=== PATIENT | male | born 1970 | race Caucasian/White ===

== ENCOUNTER → 2016-11-08 | Outpatient (REF) ==
[~2016-11-08] MED LIST: CELEXA10 MG PO; LORTAB 5/500 501 TAB PO; MULTI VITAMINS1 TAB PO; NORCO 325 MG-51 TAB PO; NORCO 325 MG-7.1 TAB PO; PRILOSEC10 MG PO; VICODIN 5/300 PO; VITAMINC1000TA PO; VOLTAREN SR25 MG/TAB PO
== END ==
LOC: WSOH 11:02
DX: Z01.89 Encounter for other specified special examinations (principal)

== ENCOUNTER 2018-09-27 11:01 | Day surgery (SDC) | payer OTHER ==
[~2018-09-27] VITALS: Ht 180.3 cm; Wt 93.0 kg
[2018-09-27 11:44] VITALS: BP 145/98; PULSE 71; TEMP 98
[2018-09-27] MEDS ORDERED: LIPITOR20 MG PO (11:52)
[2018-09-27] MEDS ORDERED: VITAMIN B1 50 MG PO (11:52)
[2018-09-27] MEDS ORDERED: VITAMIN D3400 I1 PO (11:53)
[2018-09-27] MEDS ORDERED: VITAMIN B12 781 TAB PO (11:53)
[2018-09-27] MEDS ORDERED: NATURE'S BLEND600 M2 PO (11:54)
[2018-09-27 15:40] VITALS: BP 112/79; PULSE 65; TEMP 98
--- NOTE | 2018-09-27 15:40 | NUR ---
Patient brought back to [facility]. Alert and oriented. Vital signs stable. Sipping on water, tolerating well. Denies any pain or nausea. Requesting crackers and sprite. Mother Ros brought back to patients room. Call oakley within reach, will continue to monitor.
[2018-09-27 15:55] VITALS: BP 120/82; PULSE 64
--- NOTE | 2018-09-27 15:55 | NUR ---
Patient states he is feeling well tolerating food and drink. Vital signs WNL. 3 incisions to abdomen, intact. Will continue to monitor.
[2018-09-27 16:10] VITALS: BP 122/76; PULSE 62
--- NOTE | 2018-09-27 16:10 | NUR ---
Patient states he is feeling well and ready to go home. Vital signs stable. Tolerated food and drink well. Denies any pain or nausea. Ambulated to bathroom, spontaneous void achieved.
--- NOTE | 2018-09-27 16:30 | NUR ---
Patients discharge instructions reviewed with patient and mother. Verbalized understanding. Reviewed pain medication instructions. All questions answered. IV removed per orders. Follow up appoinment card reviewed. Patient to get dressed at this time.
--- NOTE | 2018-09-27 16:47 | NUR ---
Patient brought down to lobby via wheelchair. Mother to drive patient home. Safe in personal vehicle.
== END 2018-09-27 16:47 | disposition home or self-care (01) ==
LOC: SDCO 11:01
DX: K40.91 Unilateral inguinal hernia, without obstruction or gangrene, recurrent (principal); Z79.899 Other long term (current) drug therapy; F41.9 Anxiety disorder, unspecified; F32.9 Major depressive disorder, single episode, unspecified; G47.33 Obstructive sleep apnea (adult) (pediatric); E78.00 Pure hypercholesterolemia, unspecified; K21.9 Gastro-esophageal reflux disease without esophagitis; F17.220 Nicotine dependence, chewing tobacco, uncomplicated
CPT/HCPCS: C1781; J0690; J1100; J1885; J2250; J2405; J2704; J2710; J3010; J7120

== ENCOUNTER 2019-03-23 08:32 | Day surgery (SDC) | payer OTHER ==
[~2019-03-23] VITALS: Ht 180.3 cm; Wt 91.6 kg
[~2019-03-23 08:32] MED LIST changes: +LIPITOR20 MG PO; +NATURE'S BLEND600 M2 PO; +VITAMIN B1 50 MG PO; +VITAMIN B12 781 TAB PO; +VITAMIN D3400 I1 PO
[2019-03-23 08:57] VITALS: BP 120/87; PULSE 72; TEMP 98.2
[2019-03-23 10:14] VITALS: BP 116/89; PULSE 59
--- NOTE | 2019-03-23 10:16 | NUR ---
VSS. PATIENT DENIES NAUSEA AND DISCOMFORT. PATIENT GIVEN MUFFIN AND COFFEE. DAUGHTER AT BEDSIDE.
[2019-03-23 10:30] VITALS: BP 119/80; PULSE 68; TEMP 97.8
--- NOTE | 2019-03-23 10:40 | NUR ---
VSS. PATIENT TOLERATES FOOD WITHOUT PROBLEMS. PATIENT REQUESTS MORE COFFEE. DAUGTER AT BEDSIDE.
--- NOTE | 2019-03-23 10:50 | NUR ---
VSS. PATIENT STATES READY TO GO HOME. PATIENT GIVEN WRITTEN AND VERBAL INSTRUCTIONS. VOICES UNDERSTANDING. IV DCD INTACT AND PRESSURE APPLIED
[2019-03-23 10:56] VITALS: BP 116/82; PULSE 64
[2019-03-23 12:37] VITALS: BP 112/79; PULSE 56
== END 2019-03-23 10:56 | disposition home or self-care (01) ==
LOC: SDCO 08:32
DX: D12.3 Benign neoplasm of transverse colon (principal); D12.5 Benign neoplasm of sigmoid colon; K92.1 Melena; E78.00 Pure hypercholesterolemia, unspecified; G47.33 Obstructive sleep apnea (adult) (pediatric); K21.9 Gastro-esophageal reflux disease without esophagitis; K44.9 Diaphragmatic hernia without obstruction or gangrene; E78.5 Hyperlipidemia, unspecified; F41.9 Anxiety disorder, unspecified; F32.9 Major depressive disorder, single episode, unspecified
CPT/HCPCS: J2704

== ENCOUNTER → 2019-06-25 | Outpatient (CLI) | payer OTHER | LOC: COL.RAD 08:05 | DX: M50.11 Cervical disc disorder with radiculopathy, high cervical region (principal); M48.02 Spinal stenosis, cervical region ==

== ENCOUNTER → 2019-07-09 | Outpatient (CLI) | payer OTHER ==
--- NOTE | 2019-07-02 08:14 | NUR ---
lmom with instructions, call back number, date and time of procedure
[~2019-07-09] VITALS: Ht 180.3 cm; Wt 91.5 kg
[~2019-07-09] MED LIST changes: +ZORVOLEX18 MG PO
[2019-07-09 12:49] VITALS: BP 143/96; PULSE 78
[2019-07-09 14:14] VITALS: BP 151/111; PULSE 65
== END ==
LOC: COL.RAD 07-06 09:30
DX: M48.02 Spinal stenosis, cervical region (principal)
CPT/HCPCS: J1100

== ENCOUNTER → 2021-08-12 | Outpatient (CLI) | payer SELFPAY | LOC: COL.LAB 13:55 | DX: M79.604 Pain in right leg (principal) ==

== ENCOUNTER 2024-02-14 22:10 | Emergency (ER) | payer SELFPAY ==
[~2024-02-14] VITALS: Ht 180.3 cm; Wt 86.4 kg
[~2024-02-14 22:10] MED LIST changes: +PREVACID 30MG30 M1 PO
[2024-02-14 22:30] VITALS: O2SAT 96
[2024-02-14] MEDS ORDERED: Morphine 4 MG/ML VIAL IV PRN (22:30)
[2024-02-14 22:39] LABS: HEMATOCRIT 44.8 % (42.0-52.0); HEMOGLOBIN 15.6 g/dl (13.5-18.0); MEAN CELL VOLUME 96 fl (80.0-100.0); MEAN CORPUSCULAR HEMOGLOBIN 34 pg (27-31); MEAN CORPUSCULAR HGB CONC 35 g/dl (33.0-37.0); MEAN PLATELET VOLUME 9.3 fl (7.4-10.4); PLATELET COUNT 227 K/mm3 (130-400); RED BLOOD COUNT 4.66 M/mm3 (4.20-5.60)
[2024-02-14 22:48] LABS: PROTHROMBIN TIME 10.8 SECONDS (9.7-12.8)
[2024-02-14 22:53] LABS: ALANINE AMINOTRANSFERASE 45 U/L (0-55); ALBUMIN 4.4 g/dL (3.5-5.0); ALKALINE PHOSPHATASE 95 U/L (40-150); ANION GAP 11 mmol/L (7-16); AST,SGOT 38 U/L (5-34); BILIRUBIN,TOTAL 0.7 mg/dL (0.2-1.2); BLOOD UREA NITROGEN 15 mg/dL (8-26); CALCIUM 9.8 mg/dL (8.4-10.2); CHLORIDE 106 mEq/L (98-107); CREATININE, serum 1.14 mg/dL (0.72-1.25); GLUCOSE 89 mg/dL (70-99); POTASSIUM 3.9 mEq/L (3.5-4.5); SODIUM 141 mEq/L (136-145); TOTAL PROTEIN 7.9 g/dl (6.2-8.1)
[2024-02-14 23:01] LABS: PARTIAL THROMBOPLASTIN TIME 29.9 SECONDS (26.0-37.0); TROPONIN-I < 0.010 ng/mL (0.00-0.033)
[2024-02-14 23:05] LABS: BAND 2 % (0-10); EOSINOPHIL 4 % (0-4); LYMPHOCYTE 21 % (20.0-51.0); NEUTROPHILS 62 % (42.0-75.2); PLATELET ESTIMATE NORMAL (NORMAL)
[2024-02-14] MEDS ORDERED: Iohexol 300 - 100 ML VIAL IV ONE (23:44)
[2024-02-14] MEDS ORDERED: NS 100 ML IV ONE (23:44)
[2024-02-14] MEDS ORDERED: HYDROmorphone 0.5 MG/0.5 ML SYRINGE IV ONE (23:45)
[2024-02-15] MEDS ORDERED: diazePAM 2 MG TAB PO ONE (00:30)
[2024-02-15] MEDS ORDERED: dexAMETHasone 10 MG/ML VIAL IV ONE (00:30)
[2024-02-15] MEDS ORDERED: Home HYDROcodone/Acetaminophen 5/325 MG #4 TABS/PACK PO ONE (01:00)
[2024-02-15] MEDS ORDERED: ROBAXIN 50500 MG/TAB PO (01:10)
[2024-02-15] MEDS ORDERED: NORCO 325 MG-51 TAB PO (01:10)
[2024-02-15 01:23] VITALS: BP 139/94; PULSE 83; TEMP 98.2
== END 2024-02-15 01:27 | disposition home or self-care (01) ==
LOC: COL.ER 22:10
PROVIDERS: Emergency Medicine
DX: I71.21 Aneurysm of the ascending aorta, without rupture (principal); M54.2 Cervicalgia
CPT/HCPCS: J1100; J1170; J2270; Q9967